=== PATIENT | male | born 1980 | race Two or more races ===

== ENCOUNTER 2019-03-03 19:02 | Emergency (ER) | payer MEDICAID, OTHER ==
[~2019-03-03] VITALS: Ht 170.2 cm; Wt 75.0 kg
[2019-03-03] MEDS ORDERED: IBUPROFEN 600MG TABLET PO ONE (20:45)
[2019-03-03] MEDS ORDERED: BACITRACIN ZINC OINT UDPKT TOP ONE (20:45)
[2019-03-03] MEDS ORDERED: CEPHALEXIN 250MG CAPSULE PO ONE (20:45)
[2019-03-03] MEDS ORDERED: SULFAMETHOXAZOLE/TRIMETHOPRIM 800/160MG TABLET PO ONE (20:45)
[2019-03-03 21:00] VITALS: BP 133/85
== END 2019-03-03 21:15 | disposition home or self-care (01) ==
LOC: ER 19:02
DX: T81.49XA Infection following a procedure, other surgical site, initial encounter (principal); L03.116 Cellulitis of left lower limb; F12.10 Cannabis abuse, uncomplicated; F17.200 Nicotine dependence, unspecified, uncomplicated; V09.9XXA Pedestrian injured in unspecified transport accident, initial encounter; Y93.89 Activity, other specified; Y92.89 Other specified places as the place of occurrence of the external cause; Y99.8 Other external cause status
CPT/HCPCS: 87070; 87077; 99284

== ENCOUNTER 2019-03-05 18:23 | Emergency (ER) | payer MEDICAID ==
[~2019-03-05] VITALS: Ht 170.2 cm; Wt 76.0 kg
[2019-03-05 20:49] VITALS: BP 125/82
== END 2019-03-05 20:50 | disposition home or self-care (01) ==
LOC: ER 18:23
DX: Z48.00 Encounter for change or removal of nonsurgical wound dressing (principal); L29.9 Pruritus, unspecified
CPT/HCPCS: 99283

== ENCOUNTER 2021-01-21 08:58 | Emergency (ER) | payer MEDICAID ==
[~2021-01-21] VITALS: Ht 170.2 cm; Wt 75.0 kg
[2021-01-21] MEDS ORDERED: TETRACAINE 0.5% OPHTH DROPS 4ML LEFTEYE ONE (10:30)
[2021-01-21] MEDS ORDERED: ACETAMINOPHEN 325MG TABLET PO ONE (10:30)
[2021-01-21] MEDS ORDERED: FLUORESCEIN SODIUM 1MG/STRIP LEFTEYE ONE (10:30)
[2021-01-21] MEDS ORDERED: POLY15DR31 EACHEYE (11:45)
[2021-01-21 11:55] VITALS: BP 134/87
== END 2021-01-21 11:57 | disposition home or self-care (01) ==
LOC: ER 08:58
DX: H10.33 Unspecified acute conjunctivitis, bilateral (principal); I10 Essential (primary) hypertension
CPT/HCPCS: 99283